=== PATIENT | male | born 1995 | race Caucasian/White ===

== ENCOUNTER 2017-09-25 14:52 | Inpatient (IN) | payer BC ==
[2017-09-25] MEDS ORDERED: 0.9 % SODIUM CHLORIDE 1,000 ML BAG IV ONE (14:55)
[2017-09-25] MEDS ORDERED: ONDANSETRON HCL IV 4 MG/2 ML VIAL IVP ONE (14:55)
--- NOTE | 2017-09-25 15:00 | Emergency Department Record ---
History of Present Illness - General Chief Complaint: Abdominal Pain Stated Complaint: STOMACH PAIN Time Seen by Provider: 09/25/17 14:55 Source: Patient Mode of Arrival: Ambulatory Limitations: No limitations - History of Present Illness Initial Comments: 21 yo female presents with upper abdominal pain on and off for several months. The pain is in the epigastric area. Some foods seem to bring on the pain. No vomiting but he does have nausea. He drinks about 4-5 beers a week. No history of abdominal surgery. He was seen at a [facility] and was told he may have pancreatitis. No diarrhea. No blood in the stools. No fevers. MD Complaint: Abdominal pain -: Month(s) Location: Epigastric Radiation: None Migration to: No migration Severity: Moderate Quality: Aching Consistency: Intermittent Improves With: Nothing Worsens With: Eating Associated Symptoms: Nausea - Related Data Home Medications Medication Instructions Recorded Confirmed Last Taken Cyanocobalamin (Vitamin B-12) 2,000 mcg PO DAILY 09/25/17 09/25/17 Unknown [Vitamin B-12] Loratadine/Pseudoephedrine 1 tab PO DAILY 09/25/17 09/25/17 Unknown [Claritin-D 24 Hour Tablet] Omeprazole Magnesium [Prilosec Otc] 20 mg PO DAILY 09/25/17 09/25/17 Unknown Allergies Allergy/AdvReac Type Severity Reaction Status Date / Time No Known Drug Allergies Allergy Verified 09/25/17 14:59 Review of Systems Constitutional: Denies: Chills, Fever, Malaise, Weakness Eyes: Denies: Eye discharge, Vision change ENT: Denies: Congestion, Throat pain Respiratory: Denies: Cough, Dyspnea, Wheezes Cardiovascular: Denies: Chest pain, Palpitations, Syncope Endocrine: Denies: Fatigue, Polydipsia, Polyuria Gastrointestinal: Reports: As per HPI, Abdominal pain, Nausea. Denies: Constipation, Diarrhea, Hematemesis, Hematochezia, Vomiting Genitourinary: Denies: Dysuria, Frequency, Hematuria Musculoskeletal: Reports: Back pain (chronic from scoliosis). Denies: Arthralgia, Joint swelling, Myalgia Skin: Denies: Bruising, Change in color, Rash Neurological: Denies: Abnormal gait, Headache Psychiatric: Denies: Anxiety Hematological/Lymphatic: Denies: Easy bleeding, Easy bruising, Swollen glands Physical Exam - General General Appearance: Alert, Oriented x3, Cooperative, No acute distress Limitations: No limitations - Head Head exam: Normal inspection - Eye Eye exam: Normal appearance, PERRL. negative: Conjunctival injection, Scleral icterus - ENT ENT exam: Normal exam, Mucous membranes moist. negative: Mucous membranes dry Ear exam: Normal external inspection Nasal Exam: Normal inspection Mouth exam: Normal external inspection - Neck Neck exam: Normal inspection, Full ROM. negative: Tenderness - Respiratory Respiratory exam: Normal lung sounds bilaterally. negative: Respiratory distress - Cardiovascular Cardiovascular Exam: Regular rate, Normal rhythm, Normal heart sounds - GI/Abdominal GI/Abdominal exam: Soft, Normal bowel sounds, Tenderness (mild epigastric tenderness). negative: Distended, Guarding, Rebound, Rigid - Rectal Rectal exam: Deferred - exam: Deferred - Extremities Extremities exam: Normal inspection, Full ROM, Normal capillary refill. negative: Tenderness - Back Back exam: Denies: CVA tenderness (R), CVA tenderness (L) - Neurological Neurological exam: Alert, Oriented X3 - Psychiatric Psychiatric exam: Normal affect, Normal mood - Skin Skin exam: Dry, Intact, Normal color, Warm Course - Reevaluation(s) Reevaluation #1: 09/25/17 15:34 The CBC and UA were reviewed and normal 09/25/17 15:48 No significant changes on the CMP 09/25/17 16:04 The lab called. The lipase is elevated but still running on the analyzer. CT ordered. 09/25/17 17:00 Lipase >836 09/25/17 17:22 CT scan demonstrates acute pancreatitis with small amount of free fluid 09/25/17 17:[address] Jacobo regarding admission for acute pancreatitis. He accepts the admission Medical Decision Making - Lab Data Result diagrams: 09/25/17 14:40 09/25/17 14:40 Disposition Disposition: Admit Clinical Impression: Abdominal pain, Pancreatitis Disposition: Still a Patient at [facility] Decision to Admit: Admit from ER Decision to Admit Date: 09/25/17 Decision to Admit Time: 17:35 Condition: (2) Stable Forms: Patient Portal Access Time of Disposition: 17:35 Quality - Quality Measures Quality Measures: N/A - Blood Pressure Screening Does Patient Have Any of the Following: No Blood Pressure Classification: Hypertensive Reading Systolic Measurement: 131 Diastolic Measurement: 91 Screening for High Blood Pressure: < Pre-Hypertensive BP, F/U Documented > [ [id number]] Pre-Hypertensive Follow-up Interventions: Referral to alternative/primary care provider.
[2017-09-25 15:27] LABS: BASO % 0.3 % (0-6); EOS % 5.1 % (0-6); GRAN % 65.7 % (47-80); HEMATOCRIT 51.1 % (42.0-52.0); HEMOGLOBIN 17.8 gm/dl (14.0-18.0); LYMPH % 14.7 % (16-45); MEAN CORPUSCULAR HGB CONC 34.8 g/dl (32-36); MEAN PLATELET VOLUME 9.5 fl (7.4-10.4); MONO % 14.2 % (0-9); PLATELET COUNT 207 K/uL (130-400); RED BLOOD COUNT 5.94 M/uL (4.40-5.70); RED CELL DISTRIBUTION WIDTH 12.1 % (11.5-14.5); WHITE BLOOD COUNT W/O DIFF 10.5 K/uL (4.2-12.2)
[2017-09-25 15:29] LABS: URINE APPEARANCE CLEAR; URINE BILIRUBIN NEGATIVE (NEGATIVE); URINE BLOOD NEGATIVE (NEGATIVE); URINE COLOR YELLOW; URINE GLUCOSE (UA) NEGATIVE (NEGATIVE); URINE KETONE NEGATIVE (NEGATIVE); URINE LEUKOCYTE ESTERASE NEGATIVE (NEGATIVE); URINE NITRITE NEGATIVE (NEGATIVE); URINE PROTEIN NEGATIVE (NEGATIVE); URINE UROBILINOGEN 0.2 E.U./dL (0.20 - 1.00)
[2017-09-25 15:30] LABS: MEAN CORPUSCULAR HEMOGLOBIN 29.9 pg (27-33)
[2017-09-25 15:37] LABS: BLOOD UREA NITROGEN 12 mg/dL (6-20); CREATININE 0.9 mg/dL (0.7-1.2); EST GLOMERULAR FILTRATION RATE > 60 mL/min; TOTAL PROTEIN 7.6 g/dL (6.6-8.7)
[2017-09-25 15:39] LABS: GLUCOSE,RANDOM 93 mg/dL (74-109)
[2017-09-25 15:42] LABS: ALB/GLOB RATIO 1.5 (1.1-1.8); ALBUMIN 4.6 g/dL (4.0-5.0); ALKALINE PHOSPHATASE 45 U/L (40-129); ALT/SGPT 22 U/L (<41); AST/SGOT 16 U/L (10.0-50.0)
[2017-09-25 16:20] LABS: LIPASE > 838 U/L (13-60)
[2017-09-25] MEDS ORDERED: ONDANSETRON HCL IV 4 MG/2 ML VIAL IVP PRN (18:06)
[2017-09-25] MEDS: 0.9 % SODIUM CHLORIDE 1000ML 1,000 ML IV PRN ×2 (18:36→23:55)
[2017-09-25] MEDS: PANTOPRAZOLE SODIUM IV 40 MG VIAL IV SCH (20:05)
[2017-09-26] MEDS: MORPHINE SULFATE 4MG/ML PREFILLED SYRINGE IVP PRN ×2 (00:17→06:50)
[2017-09-26 06:57] LABS: ALB/GLOB RATIO 1.5 (1.1-1.8); ALBUMIN 3.6 g/dL (4.0-5.0); ALKALINE PHOSPHATASE 36 U/L (40-129); ALT/SGPT 15 U/L (<41); AST/SGOT 13 U/L (10.0-50.0); BLOOD UREA NITROGEN 8 mg/dL (6-20); EST GLOMERULAR FILTRATION RATE > 60 mL/min; GLUCOSE,RANDOM 87 mg/dL (74-109)
[2017-09-26 07:56] LABS: LIPASE > 955 U/L (13-60)
[2017-09-26] MEDS: 0.9 % SODIUM CHLORIDE 1000ML 1,000 ML IV PRN ×2 (09:08→15:51)
[2017-09-26] MEDS: PANTOPRAZOLE SODIUM IV 40 MG VIAL IV SCH (10:53)
--- NOTE | 2017-09-26 17:14 | Inpatient Certification ---
Inpatient Certification Admit to inpatient care: Based on my medical assessment, after consideration of patient's risk factors (age, co-morbidities and patient presenting symptoms and acuity), I expect that this patient will remain in the hospital greater than or equal to two midnights and that the services needed warrant inpatient care because: Patient Risk Factors: [] Estimated length of stay: [] The patient may reasonably be expected to be discharged or transferred to a hospital within 96 hours after admission to [facility]. Services needed: [] Post hospital care (if known): [] I certify that my determination is in accordance with my understanding of Medicare requirements for reasonable and necessary inpatient services.
[2017-09-27 06:15] LABS: BASO % 0.7 % (0-6); EOS % 4.9 % (0-6); GRAN % 58.7 % (47-80); HEMATOCRIT 44.7 % (42.0-52.0); HEMOGLOBIN 15.5 gm/dl (14.0-18.0); LYMPH % 23.6 % (16-45); MEAN CELL VOLUME 87.8 fl (81-97); MEAN CORPUSCULAR HEMOGLOBIN 30.5 pg (27-33); MEAN CORPUSCULAR HGB CONC 34.7 g/dl (32-36); MEAN PLATELET VOLUME 9.4 fl (7.4-10.4); MONO % 12.1 % (0-9); PLATELET COUNT 171 K/uL (130-400); RED BLOOD COUNT 5.09 M/uL (4.40-5.70); RED CELL DISTRIBUTION WIDTH 11.9 % (11.5-14.5); WHITE BLOOD COUNT W/O DIFF 6.1 K/uL (4.2-12.2)
[2017-09-27 06:34] LABS: BLOOD UREA NITROGEN 7 mg/dL (6-20); CREATININE 0.7 mg/dL (0.7-1.2); EST GLOMERULAR FILTRATION RATE > 60 mL/min; GLUCOSE,RANDOM 117 mg/dL (74-109)
[2017-09-27 06:49] LABS: LIPASE > 686 U/L (13-60)
--- NOTE | 2017-09-27 07:26 | CT SCAN REPORT ---
EXAM: CT OF THE ABDOMEN AND PELVIS HISTORY: PRESSURE. TECHNIQUE: CT of the abdomen and pelvis was performed following IV administration of 100 ml of Omnipaque 300 contrast. Oral contrast also utilized. Comparison: None. FINDINGS: Limited evaluation of the lung bases is unremarkable. The osseous structures are grossly intact. The liver shows mild fatty infiltrative change. The spleen is enlarged at 15 cm. No focal liver lesions. The adrenal glands are unremarkable. There are peripancreatic inflammatory changes, consistent with acute pancreatitis. No discreet abscess. No free air. The kidneys are unremarkable. The gallbladder is present. No evidence for bowel obstruction. There is abundant stool in the colon. Normal appendix. Trace of free fluid. IMPRESSION: 1. ACUTE PANCREATITIS. 2. FATTY INFILTRATIVE CHANGE TO THE LIVER. SPLENOMEGALY AT 15 CM. JOB NUMBER: [id number] MTDD
[2017-09-27] MEDS ORDERED: ENOXAPARIN 40 MG/0.4 ML SYR SQ SCH (10:00)
[2017-09-27] MEDS: PANTOPRAZOLE SODIUM IV 40 MG VIAL IV SCH (10:34)
[2017-09-27] MEDS: MORPHINE SULFATE 4MG/ML PREFILLED SYRINGE IVP PRN ×2 (11:25→11:26)
--- NOTE | 2017-09-27 13:20 | History and Physical Report ---
DATE: 09/25/2017 CHIEF COMPLAINT: Epigastric abdominal pain radiating into his back. HISTORY OF PRESENT ILLNESS: This 21-year-old male presented to the emergency department with 3 days or progressively getting worse, epigastric abdominal pain, no vomiting. Seen by Dr. Aldridge, admitted to the hospital for pancreatitis. PAST MEDICAL HISTORY: None. 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 No cigarettes, no alcohol. PAST SURGICAL HISTORY: He had a left-sided hernia repair at 3 years of age. ALLERGIES: No known allergies. MEDICATIONS: 1. Omeprazole 20 mg a day. 2. Claritin-D 1 a day. 3. Vitamin B12, 2000 mcg a day. FAMILY/PSYCHOSOCIAL HISTORY: Unremarkable. His father had diabetes, grandparents had strokes. REVIEW OF SYSTEMS: HEENT: No upper respiratory infection symptoms, cough, cold, or congestion. No sore throat. Respiratory: No difficulty breathing. Never smoked. Cardiovascular: No chest pain, palpitations, or arrhythmia. Gastrointestinal: No nausea, vomiting, diarrhea, black stools, or bloody stools. Genitourinary: No dysuria, hematuria, frequency, or burning on urination. Neurological: No CVA, paralysis, or paresthesias. Extremities: No swelling, discoloration, or pain of the extremities. PHYSICAL EXAMINATION: VITALS: Height 5 feet 10 inches, weight 189 pounds. Temperature 99.2, pulse 79, blood pressure 128/89, respiratory rate 18, pulse ox 100% on room air. HEENT: Pupils are equal, round, and reactive to light and accommodation. Extraocular muscles are intact. Throat is clear. Nose is clear. Tympanic membranes are miller. NECK: Supple. No jugular venous distention. No hepatojugular reflux. No carotid bruits. Thyroid is smooth. CARDIOVASCULAR: Regular rate and rhythm without murmurs, clicks, rubs, or gallops. RESPIRATORY: Clear to auscultation and percussion. ABDOMEN: Epigastric pain on palpation. No rebound, rigidity, or guarding. The patient states he is doing better. EXTREMITIES: No pitting edema. No cyanosis, no clubbing. Full range of motion. Peripheral pulses are good. BREASTS: Normal male breasts. RECTAL: Exam deferred. GENITALIA: Deferred. NEUROLOGIC: Cranial nerves II-XII intact. No gross defects. Sensation normal, strength normal. Deep tendon reflexes equal bilaterally with Babinski negative. MENTAL STATUS: Alert and oriented x3. IMPRESSION: Acute pancreatitis. PLAN: His lipase was still elevated today. I feel it is too high to send home. We will continue IV hydration. If necessary, pain control. He has not had much need for pain control. IV fluids 200 mL/hour. Narcotics if necessary for pain. INPATIENT CERTIFICATION: Admit to inpatient care. Based on my medical assessment, after consideration of patient's risk factors, age, comorbidities, and patient's presenting symptoms and acuity, I expect that this patient will remain in the hospital greater than or equal to 2 midnights and that the services needed warrant inpatient care because of the risk of complications from pancreatitis. He also is getting IV fluids and pain control. Estimated length of stay is 2 days. The patient may reasonably be expected to be discharged or transferred to a hospital within 96 hours after admission to [facility]. I certify that my determination is in accordance with my understanding of Medicare requirements for reasonable and necessary inpatient services. JAZMINE
[2017-09-27] MEDS: 0.9 % SODIUM CHLORIDE 1000ML 1,000 ML IV PRN (17:27)
[2017-09-27] MEDS ORDERED: DIPHENHYDRAMINE HCL 25 MG CAPSULE PO PRN (21:44)
[2017-09-28] MEDS: 0.9 % SODIUM CHLORIDE 1000ML 1,000 ML IV PRN ×2 (00:11→06:24)
[2017-09-28 07:01] LABS: BASO % 0.4 % (0-6); EOS % 4.4 % (0-6); GRAN % 58.5 % (47-80); HEMATOCRIT 45.3 % (42.0-52.0); HEMOGLOBIN 15.5 gm/dl (14.0-18.0); LYMPH % 26.8 % (16-45); MEAN CELL VOLUME 85.8 fl (81-97); MEAN CORPUSCULAR HEMOGLOBIN 29.4 pg (27-33); MEAN CORPUSCULAR HGB CONC 34.2 g/dl (32-36); MEAN PLATELET VOLUME 9.6 fl (7.4-10.4); MONO % 9.9 % (0-9); PLATELET COUNT 178 K/uL (130-400); RED BLOOD COUNT 5.28 M/uL (4.40-5.70); RED CELL DISTRIBUTION WIDTH 11.6 % (11.5-14.5); WHITE BLOOD COUNT W/O DIFF 4.7 K/uL (4.2-12.2)
[2017-09-28 07:29] LABS: ALB/GLOB RATIO 1.3 (1.1-1.8); ALBUMIN 3.6 g/dL (4.0-5.0); ALKALINE PHOSPHATASE 41 U/L (40-129); ALT/SGPT 12 U/L (<41); AST/SGOT 9 U/L (10.0-50.0); BLOOD UREA NITROGEN 9 mg/dL (6-20); CREATININE 0.8 mg/dL (0.7-1.2); EST GLOMERULAR FILTRATION RATE > 60 mL/min; GLUCOSE,RANDOM 295 mg/dL (74-109); TOTAL PROTEIN 6.3 g/dL (6.6-8.7)
[2017-09-28 08:02] LABS: LIPASE 524 U/L (13-60)
[2017-09-28] MEDS: PANTOPRAZOLE SODIUM IV 40 MG VIAL IV SCH (09:58)
--- NOTE | 2017-09-28 12:30 | Medical Records Consult ---
DATE OF CONSULTATION: 09/27/2017 REASON FOR CONSULTATION: Acute pancreatitis. HISTORY OF PRESENT ILLNESS: The patient is a very pleasant 21-year-old male seen in consultation at the request of Dr. Jacobo for evaluation and treatment of possible acute pancreatitis. The patient relates that he had a rather acute onset of severe epigastric pain beginning on , 4 days ago. He denied any vomiting but did feel nauseous. He reports that he might have had pancreatitis in June after being evaluated at a primary care physician's office and told at that time that he might have pancreatitis. He apparently had an ultrasound completed which he thought was unremarkable although it is not clear. He then felt better but has had a recurrence of symptoms as mentioned above. He denies any fever. He denies any vomiting, hematemesis, or diarrhea. He denies any prior knowledge of pancreatitis other than that stated above. He does have an uncle who suffers with pancreatitis thought to be related to gallstones. The patient does not drink heavily. He states that weeks might go by without any alcohol. At most, he might have 4-5 beers total in 1 week. He was born in [place] and moved to [place] to live with his father. 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 He denies any history of trauma. PAST MEDICAL HISTORY: Otherwise fairly unremarkable. He does have allergies. HOME MEDICATIONS: 1. Vitamin B 2000 mcg daily. 2. Claritin-D as needed. ALLERGIES: He denies allergies to medications. PAST SURGICAL HISTORY: He denies previous surgeries. SOCIAL HISTORY: He does not smoke or use illicit drugs. FAMILY HISTORY: As mentioned, significant only for pancreatitis in his uncle. RADIOGRAPHIC DATA: A CT scan of the abdomen was obtained on 09/25/2017 demonstrating mild fatty infiltration of the liver. The spleen is enlarged at 15 cm. No focal liver lesions were noted. There were some peripancreatic inflammatory changes consistent with acute pancreatitis but no abscess was noted. REVIEW OF SYSTEMS: Noted on the medical record and reviewed. Other than the epigastric pain and nausea, he denies any dysuria, chest pain, chronic coughing or wheezing, skin changes, or easy bruising or bleeding. PHYSICAL EXAMINATION: GENERAL: At this time, he is alert and completely oriented. He seems quite comfortable. HEART: Regular. LUNGS: Clear. ABDOMEN: Soft but tender in the epigastrium. There is no rebound, rigidity, or guarding. EXTREMITIES: Free from edema. NEUROMUSCULAR: Seems to be grossly unremarkable. LABORATORY DATA: White blood cell count 10.5, hemoglobin 17.8, hematocrit 51.5 on admission, platelet count 207,000. BUN 12, creatinine 0.9, glucose 93. Lipase this morning was greater than 686. His aminotransferase levels and bilirubin were normal. Clinically, the patient is significantly improved. His pain was a 10/10 at the onset of symptoms and he now feels it is at most a 5/10. He has been eating and after lunch felt as though eating did not worsen his pain at all. He had normal vital signs and is afebrile. IMPRESSION: The patient is suffering with acute pancreatitis with changes noted on CT scan and an elevated serum lipase. He may have had an episode of pancreatitis in June 2017 as well. The cause for this remains unclear. He thought he had an ultrasound completed in June which was unremarkable but was not absolutely sure. My recommendation at this time is to have a repeat ultrasound of the abdomen, which I took the liberty of ordering. I would also like to check an IgG 4 level to rule out possible autoimmune pancreatitis. If the ultrasound proves negative, then an MRI with MRCP may prove beneficial to evaluate for possible entity such as pancreas divisum and other abnormalities involving the upper abdomen. His liver suggests fatty infiltration and the spleen was enlarged on CT scanning. This can be reevaluated. I would recheck his laboratory including a CBC, metabolic panel, and lipase. I would cut back on his diet to a full liquid, low fat at this time. He did well with soup for lunch but had a hard time after eating eggs and hash browns for breakfast today. Further recommendations may be forthcoming pending results of testing. I would be happy to see him again in the future at your discretion. Thank you for allowing me to participate in his care. CC: Rajendra Jacobo, DO [facility]
--- NOTE | 2017-09-28 13:39 | Discharge Note ---
VTE H&P Assessment - Risk for VTE Risk for VTE: Yes Risk Level: Moderate Risk Assessment Date: 09/27/17 Risk Assessment Time: 13:00 VTE Orders Placed or Will Be Placed: Yes Discharge Medications - Discharge Medications Home Medications: Ambulatory Orders Cyanocobalamin (Vitamin B-12) [Vitamin B-12] 2,000 mcg PO DAILY 09/25/17 [Last Taken Unknown] Loratadine/Pseudoephedrine [Claritin-D 24 Hour Tablet] 1 tab PO DAILY 09/25/17 [ Last Taken Unknown] Omeprazole Magnesium [Prilosec Otc] 20 mg PO DAILY 09/25/17 [Last Taken Unknown] Discharge Note - Date Date of Discharge Note: 09/28/17 Disposition: Home, Self-Care Condition: (1) Good Additional Instructions: follow up with Dr. Lemus his primary Dr in 3 to 7 days follow up with Dr. Holland in 2 weeks or as scheduled by Dr. Holland obtain MRI/MRercp as scheduled by Rehana Use tylenol or ibuprofen for pain gradually increase diet Forms: Patient Portal Access
--- NOTE | 2017-09-29 07:55 | ULTRASOUND REPORT ---
EXAM: EMERGENCY COMPLETE ABDOMEN ULTRASOUND HISTORY: POSSIBLE GALLSTONES. TECHNIQUE: Complete real-time ultrasound examination of the abdomen was obtained. Comparison: No prior abdomen ultrasound with which to compare. Comparison is made with the recent abdomen CT dated 09/25/17. FINDINGS: Much of the pancreas was obscured by overlying bowel gas, but as visualized, no definite pancreatic mass or discreet peripancreatic fluid collection identified. The abdominal aorta appears negative with no aneurysm seen. The IVC was negative as seen. The liver has a somewhat coarsened echogenicity probably related to the mild diffuse fatty infiltration evident on the CT. No intrahepatic biliary dilatation seen. Just lateral to the gallbladder there is a hypoechoic area within the right lobe of the liver measuring about 2.6 cm in size. A very small low attenuation focus was seen in this region on the prior CT a few days ago. This may just represent some progressive edema in the liver adjacent to the gallbladder, but is nonspecific and an early developing abscess in the liver could not absolutely be excluded. If the patient's clinical setting suggests a developing abscess, short term follow-up abdomen CT with oral and IV contrast would be suggested to reassess this area. No actual gallstones are seen within the gallbladder and no true pericholecystic fluid collection is seen and no diffuse gallbladder wall thickening evident. The common duct was seen and was of normal caliber. The right kidney measures about 10.9 cm in length and the left kidney measures 10.6 cm in length with no hydronephrosis identified in either side. The spleen is partially obscured by overlying rib artifact, but does appear somewhat generous in size as was noted on the CT as well. No focal splenic mass evident. The IVC was negative as seen. IMPRESSION: 1. NO GALLSTONES OR BILIARY DILATATION SEEN. 2. THERE IS A HYPOECHOIC AREA IN THE LIVER ADJACENT TO THE GALLBLADDER WITH THIS AREA MEASURING ABOUT 2.5 CM IN SIZE AND APPEARING MORE PROMINENT THAN A VERY SMALL LOW ATTENUATION FOCUS IN THIS REGION ON THE RECENT ABDOMEN CT A FEW DAYS AGO ON 09/25/17. THE SIGNIFICANCE OF THIS IS UNCERTAIN, BUT A DEVELOPING ABSCESS IN THE LIVER COULD NOT BE EXCLUDED. IF SYMPTOMS WARRANT, SHORT TERM FOLLOW-UP ABDOMEN CT WITH ORAL AND IV CONTRAST MAY BE USEFUL. 3. GENEROUS SIZED SPLEEN ALSO NOTED ON THE CT. 4. COARSENED ECHOGENICITY OF THE LIVER CONSISTENT WITH SOME DIFFUSE FATTY INFILTRATION NOTED ON THE CT. JOB NUMBER: [id number] [facility]
[2017-09-30 10:35] LABS: IgG Subclass 2 208 mg/dL; IgG Subclass 3 20.6 mg/dL; IgG Subclass 4 55.5 mg/dL
[2017-09-30 14:03] LABS: IGG TOTAL 569 mg/dL; IgG Subclass 1 279 mg/dL
== END 2017-09-28 17:00 | disposition home or self-care (01) | DRG 440 ==
LOC: ER 14:52 → MEDSURG 17:55
PROVIDERS: ADMIT Emergency Medicine; ATTEND Emergency Medicine
DX: K85.90 Acute pancreatitis without necrosis or infection, unspecified (principal); K21.9 Gastro-esophageal reflux disease without esophagitis; K44.9 Diaphragmatic hernia without obstruction or gangrene
CPT/HCPCS: 74177; 76700; 80048; 80053; 80061; 81003; 82787; 83605; 83690; 85025; 96374; 96375; 99223; 99233; 99239; 99285; C9113; J1650; J2274; J2405; J7030

== ENCOUNTER 2017-09-29 08:10 | Emergency (ER) | payer BC ==
[2017-09-29] MEDS ORDERED: HUMULIN R 100 UNIT/ML VIAL SC ONE (08:11)
[2017-09-29] MEDS ORDERED: 0.9 % SODIUM CHLORIDE 1,000 ML BAG IV ONE (08:17)
[2017-09-29] MEDS ORDERED: DIPHENHYDRAMINE HCL 50 MG/ML VIAL IVP ONE (08:17)
[2017-09-29 08:35] LABS: HEMATOCRIT 45.9 % (42.0-52.0); HEMOGLOBIN 16.3 gm/dl (14.0-18.0); MEAN CELL VOLUME 84.8 fl (81-97); MEAN CORPUSCULAR HEMOGLOBIN 30.1 pg (27-33); MEAN CORPUSCULAR HGB CONC 35.5 g/dl (32-36); MEAN PLATELET VOLUME 9.9 fl (7.4-10.4); PLATELET COUNT 263 K/uL (130-400); RED BLOOD COUNT 5.41 M/uL (4.40-5.70); RED CELL DISTRIBUTION WIDTH 11.6 % (11.5-14.5); WHITE BLOOD COUNT W/O DIFF 17.1 K/uL (4.2-12.2)
[2017-09-29 08:42] LABS: BLOOD UREA NITROGEN 29 mg/dL (6-20); CREATININE 1.3 mg/dL (0.7-1.2); EST GLOMERULAR FILTRATION RATE > 60 mL/min
[2017-09-29 08:43] LABS: TOTAL PROTEIN 7.4 g/dL (6.6-8.7)
[2017-09-29 08:46] LABS: PLATELET ESTIMATE NORMAL (NORMAL)
[2017-09-29 08:47] LABS: ALT/SGPT 16 U/L (<41); AST/SGOT 9 U/L (10.0-50.0); BILIRUBIN,DIRECT 0.3 mg/dL (0-0.3)
[2017-09-29 08:48] LABS: ALBUMIN 4.2 g/dL (4.0-5.0); ALKALINE PHOSPHATASE 58 U/L (40-129); LIPASE 99 U/L (13-60)
[2017-09-29 08:56] LABS: URINE APPEARANCE CLEAR; URINE BILIRUBIN NEGATIVE (NEGATIVE); URINE BLOOD NEGATIVE (NEGATIVE); URINE COLOR YELLOW; URINE LEUKOCYTE ESTERASE NEGATIVE (NEGATIVE); URINE NITRITE NEGATIVE (NEGATIVE); URINE PROTEIN NEGATIVE (NEGATIVE); URINE UROBILINOGEN 0.2 E.U./dL (0.20 - 1.00)
[2017-09-29 08:56] LABS: GLUCOSE,RANDOM 711 mg/dL (74-109)
[2017-09-29 08:57] LABS: URINE GLUCOSE (UA) >=1000 mg/dL (NEGATIVE); URINE KETONE 160 mg/dL (NEGATIVE)
[2017-09-29] MEDS ORDERED: HUMULIN R 100 UNIT/ML VIAL IV ONE (09:57)
[2017-09-29] MEDS ORDERED: INSULIN REGULAR, HUMAN 100 UNIT in 0.9 % SODIUM CHLORIDE 100ML 100 ML IV SCH ×2 (10:00)
[2017-09-29] MEDS ORDERED: 0.9 % SODIUM CHLORIDE 1000ML 1,000 ML IV SCH (10:00)
--- NOTE | 2017-09-29 10:01 | Emergency Department Record ---
History of Present Illness - General Chief Complaint: Abdominal Pain Stated Complaint: ABD PAIN Time Seen by Provider: 09/29/17 08:16 Mode of Arrival: EMS - History of Present Illness Initial Comments: patient started vomiting last night and vomiting multiple times and thirsty no significant abdominal pain and he is dehydrated. Patient urinating alot last night. Patient was admitted for pancreatitis 2 days ago and discharged yesterday. Patient states a family history of DM Onset/Timin -: Hour(s) Radiation: None Improves With: Nothing Worsens With: Nothing Associated Symptoms: Nausea, Vomiting - Related Data Allergies Allergy/AdvReac Type Severity Reaction Status Date / Time No Known Drug Allergies Allergy Verified 09/29/17 11:13 Travel Screening - Travel/Exposure Within Last 30 Days Have you traveled within the last 30 days?: No - Travel/Exposure Within Last Year Have you traveled outside the [place] in the last year?: No - Additonal Travel Details Have you been exposed to anyone with a communicable illness?: No - Travel Symptoms Symptom Screening: None Review of Systems Reviewed: No additional complaints except as noted below Constitutional: Reports: As per HPI. Denies: Chills, Fever, Malaise, Night sweats, Weakness, Weight change Eyes: Reports: As per HPI. Denies: Eye discharge, Eye pain, Photophobia, Vision change ENT: Reports: As per HPI. Denies: Congestion, Dental pain, Ear pain, Epistaxis , Hearing loss, Throat pain Respiratory: Reports: As per HPI. Denies: Cough, Dyspnea, Hemoptysis, Stridor, Wheezes Cardiovascular: Reports: As per HPI. Denies: Arrhythmia, Chest pain, Dyspnea on exertion, Edema, Murmurs, Orthopnea, Palpitations, Paroxysmal nocturnal dyspnea, Rheumatic Fever, Syncope Endocrine: Reports: As per HPI. Denies: Fatigue, Heat or cold intolerance, Polydipsia, Polyuria Gastrointestinal: Reports: As per HPI, Abdominal pain, Nausea, Vomiting. Denies : Constipation, Diarrhea, Hematemesis, Hematochezia, Melena Genitourinary: Reports: As per HPI. Denies: Dysuria, Frequency, Hematuria, Incontinence, Retention, Testicular pain, Testicular mass, Urgency Musculoskeletal: Reports: As per HPI. Denies: Arthralgia, Back pain, Gout, Joint swelling, Myalgia, Neck pain Skin: Reports: As per HPI. Denies: Bruising, Change in color, Change in hair/ nails, Lesions, Pruritus, Rash Neurological: Reports: As per HPI. Denies: Abnormal gait, Confusion, Headache, Numbness, Paresthesias, Seizure, Tingling, Tremors, Vertigo, Weakness Psychiatric: Reports: As per HPI. Denies: Anxiety, Auditory hallucinations, Depression, Homicidal thoughts, Suicidal thoughts, Visual hallucinations Hematological/Lymphatic: Reports: As per HPI. Denies: Anemia, Blood Clots, Easy bleeding, Easy bruising, Swollen glands Past Medical History - SOCIAL HISTORY Smoking Status: Never smoker Alcohol Use: None Drug Use: None - RESPIRATORY Hx Respiratory Disorders: No - CARDIOVASCULAR Hx Cardio Disorders: No - NEURO Hx Neuro Disorders: Yes Hx Headaches: Yes - GI Hx GI Disorders: Yes Hx Reflux: Yes Hx Hiatal Hernia: Yes - Hx Genitourinary Disorders: No - ENDOCRINE Hx Endocrine Disorders: No Hx Diabetes: No Hx Thyroid Disease: No - MUSCULOSKELETAL Hx Musculoskeletal Disorders: No - PSYCH Hx Psych Problems: No - HEMATOLOGY/ONCOLOGY Hx Hematology/Oncology Disorders: No Family Medical History Any Significant Family History?: Yes Hx Diabetes: Father Hx Stroke: Grandparents Physical Exam - General General Appearance: Alert, Oriented x3, Cooperative, Moderate distress - Head Head exam: Normal inspection - Eye Eye exam: Normal appearance, PERRL Pupils: Normal accommodation - ENT ENT exam: Normal exam, Mucous membranes moist, Normal external ear exam, Normal orophraynx, TM's normal bilaterally Ear exam: Normal external inspection. negative: External canal tenderness Nasal Exam: Normal inspection. negative: Discharge, Sinus tenderness Mouth exam: Normal external inspection, Tongue normal Teeth exam: Normal inspection. negative: Dental caries Throat exam: Normal inspection. negative: Tonsillar erythema, Tonsillar exudate - Neck Neck exam: Normal inspection, Full ROM. negative: Tenderness - Respiratory Respiratory exam: Normal lung sounds bilaterally. negative: Respiratory distress - Cardiovascular Cardiovascular Exam: Regular rate, Normal rhythm, Normal heart sounds - GI/Abdominal GI/Abdominal exam: Soft, Normal bowel sounds. negative: Tenderness - Rectal Rectal exam: Deferred - exam: Deferred - Extremities Extremities exam: Normal inspection, Full ROM, Normal capillary refill. negative: Tenderness - Back Back exam: Reports: Normal inspection, Full ROM. Denies: Muscle spasm, Rash noted, Tenderness - Neurological Neurological exam: Alert, Normal gait, Oriented X3, Reflexes normal - Psychiatric Psychiatric exam: Normal affect, Normal mood - Skin Skin exam: Dry, Intact, Normal color, Warm Course Vital Signs 09/29/17 09/29/17 08:15 09:04 Pulse Rate 110 H Pulse Rate [ 113 H [employer] ] Respiratory 20 20 Rate Blood Pressure 116/56 Blood Pressure 98/65 [Left Arm] Pulse Ox 98 99 - Reevaluation(s) Reevaluation #1: discussed case with Dr Reggie Leyva and he wants him transferred to [facility] 09/29/17 12:30 Reevaluation #2: discussed case with DR Sutton , Dr. Garrett and Dr. Sutton and will admit to [facility] . Transfer via ambulance 09/29/17 12:59 Reevaluation #3: 09/29/17 13:02 decrease insulin drip to 4 units per hour Medical Decision Making - Data Complexity MDM Data: Labs Ordered and/or Reviewed (glucose 711, potassium 6.4,CO2 9) - Lab Data Result diagrams: 09/29/17 08:25 09/29/17 11:35 Lab Results 09/29/17 09/29/17 09/29/17 Range/Units 08:25 08:25 08:45 WBC 17.1 H (4.2-12.2) K/uL RBC 5.41 (4.40-5.70) M/uL Hgb 16.3 (14.0-18.0) gm/dl Hct 45.9 (42.0-52.0) % MCV 84.8 (81-97) fl MCH 30.1 (27-33) pg MCHC 35.5 (32-36) g/dl RDW 11.6 (11.5-14.5) % Plt Count 263 (130-400) K/uL MPV 9.9 (7.4-10.4) fl Neutrophils % 89.0 H (47-80) % Band Neutrophils % 2.0 (0-5) % Eosinophils % Not Reportable Basophils % Not Reportable Lymphocytes 6.0 L (16-45) % Monocytes 3.0 (0-9) % Platelet Estimate Normal (NORMAL) RBC Morphology Normal Sodium 132 L (136-145) mmol/L Potassium 6.4 H* (3.4-4.5) mmol/L Chloride 82 L (98-107) mmol/L Carbon Dioxide 9.0 L (22-29) mmol/L Anion Gap 41.0 H (7-16) BUN 29 H (6-20) mg/dL Creatinine 1.3 H (0.7-1.2) mg/dL Estimated GFR > 60 mL/min Random Glucose 711 H* (74-109) mg/dL Calcium 9.1 (8.6-10.0) mg/dL Total Bilirubin 0.90 (0.2-1.0) mg/dL Direct Bilirubin 0.3 (0-0.3) mg/dL AST 9 L (10.0-50.0) U/L ALT 16 (<41) U/L Alkaline Phosphatase 58 (40-129) U/L Total Protein 7.4 (6.6-8.7) g/dL Albumin 4.2 (4.0-5.0) g/dL Lipase 99 H (13-60) U/L Urine Color Yellow Urine Appearance Clear Urine pH 5.5 (5.0-8.0) Ur Specific Bryce 1.025 (1.002-1.030) Urine Protein Negative (NEGATIVE) Urine Glucose (UA) >=1000 mg/dl H (NEGATIVE) Urine Ketones 160 mg/dl H (NEGATIVE) Urine Blood Negative (NEGATIVE) Urine Nitrite Negative (NEGATIVE) Urine Bilirubin Negative (NEGATIVE) Urine Urobilinogen 0.2 (0.20 - 1.00) E.U./dL Ur Leukocyte Esterase Negative (NEGATIVE) Disposition Clinical Impression: DKA, type 1 Qualifiers: Diabetes mellitus complication detail: without coma Qualified Code(s): E10.10 - Type 1 diabetes mellitus with ketoacidosis without coma Disposition: Acute Care Hospital Transfer Condition: (2) Stable Forms: Patient Portal Access Time of Disposition: 13:01 Quality - Quality Measures Quality Measures: N/A - Blood Pressure Screening Does Patient Have Any of the Following: No Blood Pressure Classification: Normal BP Reading Systolic Measurement: 116 Diastolic Measurement: 56 Screening for High Blood Pressure: < Normal BP, F/U Not Required > [G8783]
[2017-09-29] MEDS: 0.9 % SODIUM CHLORIDE 1000ML 1,000 ML IV SCH ×3 (10:09→12:14)
[2017-09-29 11:49] LABS: BLOOD UREA NITROGEN 30 mg/dL (6-20); CREATININE 1.4 mg/dL (0.7-1.2); EST GLOMERULAR FILTRATION RATE > 60 mL/min
[2017-09-29 11:56] LABS: GLUCOSE,RANDOM 596 mg/dL (74-109)
[2017-09-29] MEDS ORDERED: POTASSIUM CHLORIDE 20 MEQ TABLET PO ONE (12:46)
[2017-09-29 13:34] LABS: BLOOD UREA NITROGEN 26 mg/dL (6-20); CREATININE 1.2 mg/dL (0.7-1.2); EST GLOMERULAR FILTRATION RATE > 60 mL/min
[2017-09-29 13:37] LABS: GLUCOSE,RANDOM 419 mg/dL (74-109)
[2017-09-29] MEDS ORDERED: DEXTROSE 5 % AND 0.9 % NACL 1,000 ML IV PRN (15:55)
== END 2017-09-29 15:15 | disposition short-term general hospital (02) ==
LOC: ER 08:10
DX: E10.10 Type 1 diabetes mellitus with ketoacidosis without coma (principal); R11.2 Nausea with vomiting, unspecified
CPT/HCPCS: 99285 ×2; 96365; 96366; 96375; 96361; 83690; 80076; 80048; 36416; 82948; 81003; 85027; 93005; 93010; J1815; J1200; J7030